=== PATIENT | male | born 1990 | race African-American/Black ===

== ENCOUNTER 2018-06-04 17:22 | Emergency (ER) | payer BC ==
[2018-06-04] MEDS ORDERED: Ondansetron ODT 8 MG TAB ONE (17:46)
== END 2018-06-04 19:04 | disposition home or self-care (01) ==
LOC: ERS 17:22
DX: R11.2 Nausea with vomiting, unspecified (principal); R19.7 Diarrhea, unspecified
CPT/HCPCS: 99283